=== PATIENT | female | born 1940 | race Asian ===

== ENCOUNTER 2020-06-03 15:02 | Outpatient (CLI) | payer BC | END 2020-06-03 15:03 | disposition home or self-care (01) | LOC: CSHMRI 15:02 | PROVIDERS: ATTEND Orthopaedic Surgery | DX: M25.511 Pain in right shoulder (principal) ==

== ENCOUNTER 2023-10-06 08:03 | Inpatient (IN) | payer BC, MEDICARE ==
[2023-10-06] MEDS ORDERED: Acetaminophen 500 MG TAB ONE (08:45)
[2023-10-06] MEDS ORDERED: Ondansetron PF 4 MG/2 ML Vial ONE (08:45)
[2023-10-06 09:02] LABS: #Eosinphils 0.09 10x3/uL (0.0-0.5); #Monocytes 0.28 10x3/uL (0.0-1.1); #Neutrophils 4.84 10x3/uL (1.5-8.4); %Eosinophils 1.6 % (0.0-6.0); %Lymphocytes 5.2 % (18.0-47.0); %Monocytes 5.1 % (0.0-10.0); %Neutrophils 87.6 % (40.0-75.0); Actual Bicarbonate (HCO3v) 24.7 mEq/L (22-28); Analyzer IN Cardio CS ER; Base Excess -0.1 mEq/L (-2 - +2); Calcium, Ionized (venous) 1.02 mmol/L (1.16-1.32); Chloride (VBG) 97 mmol/L (98-106); Hematocrit 40.8 % (34.9-44.5); Hematocrit-VBG 45 % (36.0-47.0); Hemoglobin 13.6 g/dL (12.0-15.5); Hemoglobin (Hb) 15.2 g/dL (11.7-16.1); Mean Corpuscular HGB CONC 33.3 g/dL (32.0-36.0); Mean Corpuscular Hemoglobin 29.2 pg (27.0-33.0); Mean Corpuscular Volume 87.6 fL (81.6-98.3); Mean Platelet Volume 10.4 fL (7.4-10.4); Platelet Count 185 10x3/uL (150-450); Potassium (VBG) 4.06 mmol/L (3.70-5.30); Puncture Site Other Site; RBC Distribution Width 14.4 % (11.5-14.5); RapidComm Collect By LAB; Red Blood Cell (RBC) Count 4.66 10x6/uL (3.90-5.03); Sodium 133 mmol/L (133-146); White Blood Cell (WBC) Count 5.5 10x3/uL (3.5-10.5); pH (venous) 7.397 (7.32-7.43)
[2023-10-06 09:16] LABS: ALT (SGPT) 20 U/L (8-55); AST (SGOT) 26 U/L (5-34); Albumin 3.1 g/dL (3.4-4.8); Alkaline Phosphatase 39 U/L (40-110); Anion Gap 15 mmol/L (10-20); BUN (Urea Nitrogen) 13 mg/dL (9.8-20.1); Bilirubin, Total 1.1 mg/dL (0.2-1.2); Calc. Creatinine Clearance 0 mL/min (70-130); Calcium 8.5 mg/dL (7.8-10.44); Carbon Dioxide 24 mmol/L (23-31); Chloride 98 mmol/L (98-107); Estimated GFR 70; Globulin 3.2 g/dL (2.4-3.5); Glucose 320 mg/dL (83-110); Lipase 19 U/L (8-78); Magnesium 1.5 mg/dL (1.6-2.6); Protein, Total 6.3 g/dL (5.8-8.1); Sodium 133 mmol/L (136-145)
[2023-10-06 09:56] LABS: Influenza A by NAA Not Detected (NotDetected); Influenza B by NAA Not Detected (NotDetected); SARS-CoV-2 NAA Rapid Test Not Detected (NotDetected)
[2023-10-06] MEDS ORDERED: Magnesium 2 GM/50 ML BAG (IN WATER) ONE (10:06)
[2023-10-06 12:01] LABS: Lactic Acid 2.1 mmol/L (0.5-2.2)
[2023-10-06 12:12] LABS: Troponin I 0.016 ng/mL (< 0.028)
[2023-10-06] MEDS ORDERED: Glucagon 1 MG/ML KIT IM PRN (12:49)
[2023-10-06] MEDS ORDERED: Dextrose 5% in Water 1,000 ML IV PRN (12:49)
[2023-10-06] MEDS ORDERED: Dextrose 50% Abboject 50 ML SYRINGE SLOW IVP PRN (12:49)
[2023-10-06] MEDS ORDERED: Aspirin Chewable 81 MG TAB ONE (13:17)
[2023-10-06] MEDS ORDERED: Pantoprazole 40 MG VIAL ONE (13:17)
[2023-10-06] MEDS ORDERED: Iopamidol 370 76% 100 ML VIAL ONE (13:26)
[2023-10-06 13:37] LABS: Bilirubin Neg (Negative); Blood, Urine Negative (Negative); Clarity Clear (Clear); Glucose, Urine (Dipstick) 250 mg/dL (Negative); Ketone, Urine Negative (Negative); Leukocyte 25 (Negative); Nitrite Negative (Negative); Protein, Urine (Dipstick) 15 mg/dl (Neg-Trace); Specific Gravity, Urine 1.005 (1.005-1.030); Urobilinogen Normal mg/dL (Less than 2)
[2023-10-06 14:00] LABS: Bacteria/HPF 1+ HPF (None Seen); CAUTI Indications for Culture Pelvic or flank pain; RBC/HPF 0-3 HPF (0-3); Squamous Epithelial 0-3 HPF (0-3); WBC/HPF 0-3 HPF (0-3)
[2023-10-06 14:10] LABS: Renal Epithelial 0-3 HPF (None Seen)
[2023-10-06 14:11] LABS: Urine Culture Reflex No No
[2023-10-06 14:41] VITALS: BMI 20.7
[2023-10-06 15:16] LABS: Troponin I 0.012 ng/mL (< 0.028)
[2023-10-06] MEDS: Loperamide HCl 2 MG CAP PO PRN (16:42)
[2023-10-06] MEDS: Acetaminophen 325 MG TAB PO PRN (16:42)
[2023-10-06 17:51] LABS: Troponin I 0.012 ng/mL (< 0.028)
[2023-10-06] MEDS: traMADol HCl 50 MG TAB PO PRN (19:21)
[2023-10-06] MEDS: Lactated Ringer's 1,000 ML IV SCH (20:15)
[2023-10-06] MEDS: Ondansetron PF 4 MG/2 ML Vial IVP PRN (20:15)
[2023-10-06] MEDS: Atorvastatin Calcium 20 MG TAB PO SCH (21:04)
[2023-10-06] MEDS: Famotidine 20 MG TAB PO SCH (21:04)
[2023-10-07] MEDS: Promethazine HCl 6.25 MG in Sodium Chloride 0.9% 50 ML IVPB SCH (01:24)
[2023-10-07 04:25] LABS: Anion Gap 11 mmol/L (10-20); BUN (Urea Nitrogen) 12 mg/dL (9.8-20.1); Calc. Creatinine Clearance 58 mL/min (70-130); Calcium 6.8 mg/dL (7.8-10.44); Carbon Dioxide 20 mmol/L (23-31); Chloride 105 mmol/L (98-107); Critical Call Chemistry NUR.CB19@0410; Estimated GFR 90; Glucose 136 mg/dL (83-110); Potassium 3.9 mmol/L (3.5-5.1); Sodium 132 mmol/L (136-145)
[2023-10-07 05:24] LABS: Campy jejuni + coli by PCR Negative (Negative); STEC Shiga Toxin 1+2 Negative (Negative); Salmonella spp. by PCR Negative (Negative); Shigella spp + EIEC by PCR Negative (Negative)
[2023-10-07] MEDS: Levothyroxine Sodium 75 MCG TAB PO SCH (05:25)
[2023-10-07] MEDS: Aspirin 81 mg Enteric Coated Tablet PO SCH (08:45)
[2023-10-07] MEDS: Nebivolol HCl 5 MG TAB PO SCH (08:45)
[2023-10-07] MEDS: Enoxaparin 40 MG (0.4 mL) SYRINGE SC SCH (08:45)
[2023-10-07] MEDS: Insulin Regular, Human 100 UNIT/ML 10 ML VIAL SC PRN (12:44)
[2023-10-07] MEDS: metroNIDAZOLE 500 MG in Premix 1 BAG IVPB SCH (14:05)
[2023-10-07] MEDS: Ciprofloxacin Lactate/D5W 400 MG in Premix 1 BAG IVPB SCH (20:33)
[2023-10-08 04:12] LABS: Anion Gap 11 mmol/L (10-20); BUN (Urea Nitrogen) 7 mg/dL (9.8-20.1); Calc. Creatinine Clearance 62 mL/min (70-130); Carbon Dioxide 20 mmol/L (23-31); Chloride 101 mmol/L (98-107); Estimated GFR 92; Glucose 152 mg/dL (83-110); Potassium 3.1 mmol/L (3.5-5.1); Sodium 129 mmol/L (136-145)
[2023-10-08 04:14] LABS: Hematocrit 35.6 % (34.9-44.5); Hemoglobin 12.3 g/dL (12.0-15.5); Mean Corpuscular HGB CONC 34.6 g/dL (32.0-36.0); Mean Corpuscular Hemoglobin 29.8 pg (27.0-33.0); Mean Corpuscular Volume 86.2 fL (81.6-98.3); Mean Platelet Volume 10.6 fL (7.4-10.4); Platelet Count 172 10x3/uL (150-450); RBC Distribution Width 14.2 % (11.5-14.5); Red Blood Cell (RBC) Count 4.13 10x6/uL (3.90-5.03); White Blood Cell (WBC) Count 2.5 10x3/uL (3.5-10.5)
[2023-10-08 04:16] LABS: MDiff Complete? YES
[2023-10-08 04:21] LABS: Calcium 6.3 mg/dL (7.8-10.44); Critical Call Chemistry NUR.CB19@0420
[2023-10-08 04:36] LABS: Platelet Adequacy Comment Appears Adequate; RBC Morph Comment Within Normal Limits
[2023-10-08 04:37] LABS: Band 7 % (5-11); Lymphocytes 32 % (21-51); Monocytes 14 % (0-10); Neutrophil 47 % (42-75)
[2023-10-08 07:06] LABS: Anion Gap 10 mmol/L (10-20); BUN (Urea Nitrogen) 7 mg/dL (9.8-20.1); Calc. Creatinine Clearance 59 mL/min (70-130); Carbon Dioxide 21 mmol/L (23-31); Chloride 103 mmol/L (98-107); Estimated GFR 90; Glucose 167 mg/dL (83-110); Magnesium 1.8 mg/dL (1.6-2.6); Potassium 3.1 mmol/L (3.5-5.1); Sodium 131 mmol/L (136-145)
[2023-10-08 07:08] LABS: Calcium 6.2 mg/dL (7.8-10.44); Critical Call Chemistry NUR.CB19@0707
[2023-10-08] MEDS ORDERED: Morphine 2 MG/ML VIAL SLOW IVP PRN (10:52)
[2023-10-08] MEDS: Sodium Chloride 0.9% 500 ML IV SCH (12:58)
[2023-10-08] MEDS: Potassium Chloride 20 MEQ in Premix 1 BAG IVPB SCH ×2 (13:27→17:00)
[2023-10-08] MEDS: Sodium Chloride 0.9% 1,000 ML IV SCH (13:31)
[2023-10-08] MEDS: Loperamide HCl 2 MG CAP PO PRN (15:53)
[2023-10-08] MEDS: Benzocaine/Menthol 1 LOZ LOZ PO PRN (17:00)
[2023-10-09 03:24] LABS: Hematocrit 33.4 % (34.9-44.5); Hemoglobin 11.4 g/dL (12.0-15.5); Mean Corpuscular HGB CONC 34.1 g/dL (32.0-36.0); Mean Corpuscular Hemoglobin 29.6 pg (27.0-33.0); Mean Corpuscular Volume 86.8 fL (81.6-98.3); Mean Platelet Volume 10.3 fL (7.4-10.4); Platelet Count 148 10x3/uL (150-450); Red Blood Cell (RBC) Count 3.85 10x6/uL (3.90-5.03); White Blood Cell (WBC) Count 2.8 10x3/uL (3.5-10.5)
[2023-10-09 03:44] LABS: Anion Gap 9 mmol/L (10-20); BUN (Urea Nitrogen) Less than 4 mg/dL (9.8-20.1); Calc. Creatinine Clearance 63 mL/min (70-130); Carbon Dioxide 20 mmol/L (23-31); Chloride 109 mmol/L (98-107); Estimated GFR 92; Glucose 180 mg/dL (83-110); Sodium 135 mmol/L (136-145)
[2023-10-09 03:46] LABS: Calcium 6.1 mg/dL (7.8-10.44); Critical Call Chemistry OS.YZ@0345
[2023-10-09 04:03] LABS: Band 37 % (5-11); Eosinophils 3 % (0-10); Lymphocytes 21 % (21-51); Monocytes 13 % (0-10); Neutrophil 25 % (42-75); Reactive Lymphocytes 1 % (0-10)
[2023-10-09 04:05] LABS: Dohle Bodies SLIGHT; MDiff Complete? YES; Platelet Adequacy Comment Appears Decreased; RBC Morph Comment Within Normal Limits; Toxic Granulation SLIGHT
[2023-10-09] MEDS: Sodium Chloride 0.9% 1,000 ML IV SCH (10:11)
[2023-10-09] MEDS: Potassium Chloride 20 MEQ in Premix 1 BAG IVPB SCH (11:35)
[2023-10-09] MEDS: Albumin 25% 25 GM (100 mL) BOT IVPB SCH ×2 (15:22→20:30)
[2023-10-09] MEDS: Potassium Chloride 20 MEQ TAB PO SCH (15:34)
[2023-10-09] MEDS: Pantoprazole 40 MG VIAL IVP SCH (22:18)
[2023-10-09] MEDS: Dicyclomine 10 MG CAP PO SCH (22:18)
[2023-10-10 03:41] LABS: Hematocrit 30.1 % (34.9-44.5); Hemoglobin 10.2 g/dL (12.0-15.5); Mean Corpuscular HGB CONC 33.9 g/dL (32.0-36.0); Mean Corpuscular Hemoglobin 29.1 pg (27.0-33.0); Mean Platelet Volume 10.2 fL (7.4-10.4); Platelet Count 148 10x3/uL (150-450); RBC Distribution Width 13.9 % (11.5-14.5); White Blood Cell (WBC) Count 2.6 10x3/uL (3.5-10.5)
[2023-10-10 03:51] LABS: Anion Gap 9 mmol/L (10-20); BUN (Urea Nitrogen) Less than 4 mg/dL (9.8-20.1); Calc. Creatinine Clearance 66 mL/min (70-130); Carbon Dioxide 21 mmol/L (23-31); Chloride 108 mmol/L (98-107); Estimated GFR 93; Glucose 156 mg/dL (83-110); Potassium 3.1 mmol/L (3.5-5.1); Sodium 135 mmol/L (136-145)
[2023-10-10 03:54] LABS: Calcium 6.4 mg/dL (7.8-10.44); Critical Call Chemistry NUR.JP14@0353
[2023-10-10 04:06] LABS: Band 30 % (5-11); Eosinophils 2 % (0-10); Lymphocytes 24 % (21-51); Monocytes 10 % (0-10); Neutrophil 23 % (42-75); Reactive Lymphocytes 10 % (0-10)
[2023-10-10 04:07] LABS: Dohle Bodies SLIGHT; Large Platelets SLIGHT (None Seen); Platelet Adequacy Comment Appears Decreased
[2023-10-10 04:08] LABS: MDiff Complete? YES; RBC Morph Comment Within Normal Limits
[2023-10-10] MEDS: Dicyclomine 10 MG CAP PO PRN (09:38)
[2023-10-10] MEDS: Pantoprazole DR 40 MG TAB PO SCH (09:38)
[2023-10-10] MEDS: Potassium Chloride 20 MEQ TAB PO SCH (14:04)
[2023-10-11] MEDS: Sodium Chloride 0.9% 1,000 ML IV SCH (01:44)
[2023-10-11 03:54] LABS: #Basophils 0.01 10x3/uL (0.0-0.2); #Eosinphils 0.08 10x3/uL (0.0-0.5); #Monocytes 0.47 10x3/uL (0.0-1.1); #Neutrophils 1.55 10x3/uL (1.5-8.4); %Basophils 0.3 % (0.0-2.0); %Eosinophils 2.7 % (0.0-6.0); %Lymphocytes 28.2 % (18.0-47.0); %Monocytes 15.8 % (0.0-10.0); Hematocrit 28.4 % (34.9-44.5); Hemoglobin 9.8 g/dL (12.0-15.5); Mean Corpuscular HGB CONC 34.5 g/dL (32.0-36.0); Mean Corpuscular Hemoglobin 29.3 pg (27.0-33.0); Mean Corpuscular Volume 84.8 fL (81.6-98.3); Mean Platelet Volume 10.2 fL (7.4-10.4); Platelet Count 151 10x3/uL (150-450); RBC Distribution Width 13.7 % (11.5-14.5); Red Blood Cell (RBC) Count 3.35 10x6/uL (3.90-5.03)
[2023-10-11 03:57] LABS: Anion Gap 11 mmol/L (10-20); BUN (Urea Nitrogen) 5 mg/dL (9.8-20.1); Calc. Creatinine Clearance 66 mL/min (70-130); Carbon Dioxide 19 mmol/L (23-31); Chloride 108 mmol/L (98-107); Estimated GFR 93; Glucose 135 mg/dL (83-110); Potassium 3.6 mmol/L (3.5-5.1); Sodium 134 mmol/L (136-145)
[2023-10-11 03:59] LABS: Calcium 6.7 mg/dL (7.8-10.44)
[2023-10-12 04:40] LABS: #Basophils 0.02 10x3/uL (0.0-0.2); #Eosinphils 0.13 10x3/uL (0.0-0.5); #Monocytes 0.61 10x3/uL (0.0-1.1); #Neutrophils 1.96 10x3/uL (1.5-8.4); %Basophils 0.5 % (0.0-2.0); %Eosinophils 3.4 % (0.0-6.0); %Lymphocytes 25.8 % (18.0-47.0); %Monocytes 15.8 % (0.0-10.0); %Neutrophils 50.6 % (40.0-75.0); Hematocrit 30.5 % (34.9-44.5); Hemoglobin 10.9 g/dL (12.0-15.5); Mean Corpuscular HGB CONC 35.7 g/dL (32.0-36.0); Mean Corpuscular Hemoglobin 30.2 pg (27.0-33.0); Mean Corpuscular Volume 84.5 fL (81.6-98.3); Platelet Count 152 10x3/uL (150-450); RBC Distribution Width 14.1 % (11.5-14.5); Red Blood Cell (RBC) Count 3.61 10x6/uL (3.90-5.03); White Blood Cell (WBC) Count 3.9 10x3/uL (3.5-10.5)
[2023-10-12 04:47] LABS: Anion Gap 12 mmol/L (10-20); BUN (Urea Nitrogen) 4 mg/dL (9.8-20.1); Calc. Creatinine Clearance 63 mL/min (70-130); Carbon Dioxide 19 mmol/L (23-31); Chloride 108 mmol/L (98-107); Estimated GFR 92; Glucose 147 mg/dL (83-110); Potassium 3.2 mmol/L (3.5-5.1); Sodium 136 mmol/L (136-145)
[2023-10-12] MEDS: Potassium Chloride 20 MEQ TAB PO SCH (09:36)
[2023-10-12] MEDS: Amlodipine 5 MG TAB PO SCH (20:57)
[2023-10-13 04:06] LABS: MDiff Complete? YES
[2023-10-13 04:21] LABS: Hematocrit 28.7 % (34.9-44.5); Hemoglobin 10.3 g/dL (12.0-15.5); Mean Corpuscular HGB CONC 35.9 g/dL (32.0-36.0); Mean Corpuscular Hemoglobin 30.1 pg (27.0-33.0); Mean Corpuscular Volume 83.9 fL (81.6-98.3); Mean Platelet Volume 10.3 fL (7.4-10.4); Platelet Count 204 10x3/uL (150-450); RBC Distribution Width 14.5 % (11.5-14.5); Red Blood Cell (RBC) Count 3.42 10x6/uL (3.90-5.03)
[2023-10-13 04:26] LABS: Anion Gap 12 mmol/L (10-20); BUN (Urea Nitrogen) Less than 4 mg/dL (9.8-20.1); Calc. Creatinine Clearance 67 mL/min (70-130); Calcium 7.2 mg/dL (7.8-10.44); Carbon Dioxide 19 mmol/L (23-31); Chloride 109 mmol/L (98-107); Estimated GFR 93; Glucose 128 mg/dL (83-110); Potassium 3.4 mmol/L (3.5-5.1); Sodium 137 mmol/L (136-145)
[2023-10-13 05:09] LABS: Band 10 % (5-11); Eosinophils 3 % (0-10); Lymphocytes 18 % (21-51); Monocytes 14 % (0-10); Myelocyte 2 % (0-0); Neutrophil 51 % (42-75); Platelet Adequacy Comment Appears Adequate; Reactive Lymphocytes 2 % (0-10)
[2023-10-13 05:10] LABS: Ovalocytes SLIGHT = 2-5 cells (100X) (0-1/hpf); Polychromasia SLIGHT = 2-3 cells (100X) (0-2/hpf)
[2023-10-13] MEDS: Potassium Chloride 20 MEQ TAB PO SCH (11:37)
[2023-10-13 12:31] VITALS: BP 161/73; TEMP 98.2
[2023-10-13 12:41] VITALS: BMI 20.7
== END 2023-10-13 14:45 | disposition home or self-care (01) | DRG 392 ==
LOC: CSHERS 08:03 → CSHTELE 14:34 → OBSVTOIN 10-07 16:02
PROVIDERS: ADMIT Family Medicine; ATTEND Internal Medicine
PROC: 30233J1 Transfusion of Nonautologous Serum Albumin into Peripheral Vein, Percutaneous Approach (ICD-10-PCS; principal; 2023-10-09)
DX: K52.9 Noninfective gastroenteritis and colitis, unspecified (principal); E87.1 Hypo-osmolality and hyponatremia; E03.9 Hypothyroidism, unspecified; I10 Essential (primary) hypertension; E78.5 Hyperlipidemia, unspecified; M06.9 Rheumatoid arthritis, unspecified; M19.90 Unspecified osteoarthritis, unspecified site; E83.51 Hypocalcemia; E11.65 Type 2 diabetes mellitus with hyperglycemia; E83.42 Hypomagnesemia; E87.6 Hypokalemia; Z88.0 Allergy status to penicillin; Z79.82 Long term (current) use of aspirin; Z79.899 Other long term (current) drug therapy; Z90.710 Acquired absence of both cervix and uterus; Z90.49 Acquired absence of other specified parts of digestive tract; Z98.890 Other specified postprocedural states
CPT/HCPCS: 36415; 36416; 71045; 74177; 80048; 80053; 81001; 82010; 82040; 82330; 82805; 83605; 83690; 83735; 83880; 84484; 85025; 87040; 87324; 87449; 87505; 93005; 96372; 96374; 96375; 96376; G0378; J0744; J1650; J1815; J2405; J2470; J2550; J3475; J3480; J7030; J7120; P9047; Q9967